=== PATIENT | female | born 1995 | race Caucasian/White ===

== ENCOUNTER 2022-03-31 17:40 | Emergency (ER) | payer BC ==
[2022-03-31 18:21] LABS: CHLORIDE,CL 100 mEq/L (98-106); SODIUM,NA 134 mEq/L (136-145)
[2022-03-31 18:30] LABS: ESTIMATED GFR > 60 mL/min (>=60)
[2022-03-31] MEDS: Acetaminophen 325 MG Tab PO ONE (18:34)
[2022-03-31] MEDS: Acetaminophen Soln 160 MG/5 ML UD Cup PO ONE (18:40)
== END 2022-03-31 19:15 | disposition critical access hospital (66) ==
LOC: CC.ED 17:40
DX: O36.8130 Decreased fetal movements, third trimester, not applicable or unspecified (principal); O99.013 Anemia complicating pregnancy, third trimester; O47.00 False labor before 37 completed weeks of gestation, unspecified trimester; U07.1 COVID-19; R50.9 Fever, unspecified; Z3A.33 33 weeks gestation of pregnancy; Z79.899 Other long term (current) drug therapy; Z88.1 Allergy status to other antibiotic agents; Z90.49 Acquired absence of other specified parts of digestive tract; W18.39XA Other fall on same level, initial encounter
CPT/HCPCS: 36415; 80053; 81001; 85025; 87086; 87804; 99283; 99284; A9270-GY; U0002

== ENCOUNTER 2025-01-20 17:49 | Observation (INO) | payer MEDICAID ==
[2025-01-20] MEDS ORDERED: Sodium Chloride 0.9% 10 ML Syringe FLUSH PRN (18:05)
[2025-01-20] MEDS ORDERED: Ibuprofen 200 MG Tab PO PRN (18:05)
[2025-01-20] MEDS ORDERED: Ondansetron 4 MG Tab.DIS PO PRN (18:05)
[2025-01-20] MEDS ORDERED: Ondansetron 4 MG/2 ML SDV IV PRN (18:05)
[2025-01-20] MEDS ORDERED: Acetaminophen 325 MG Tab PO PRN (18:05)
[2025-01-20] MEDS: Sodium Chloride 0.9% 1,000 ML IV SCH (18:38)
[2025-01-20] MEDS: Ciprofloxacin in D5W 400 MG in Premix Bag 1 BAG IV SCH (18:44)
[2025-01-20] MEDS: Ibuprofen Susp 100 MG/5 ML 5 ML UD Cup PO PRN (19:16)
[2025-01-21 07:38] LABS: BASOPHILS ABSOLUTE AUTO 0.01 10^3/uL (0.00-0.50); BASOPHILS PERCENT AUTO 0.2 % (0-1); EOSINOPHILS ABSOLUTE AUTO 0.06 10^3/uL (0.00-1.50); EOSINOPHILS PERCENT AUTO 1.3 % (0-6); HEMATOCRIT 33.4 % (37.0-47.0); HEMOGLOBIN 11.5 g/dL (12.0-16.0); IMMATURE GRAN ABSOLUTE AUTO 0.01 10^3/uL (0.00-0.49); IMMATURE GRAN PERCENT AUTO 0.2 % (0.0-4.9); LYMPHOCYTES ABSOLUTE AUTO 0.96 10^3/uL (0.60-5.00); LYMPHOCYTES PERCENT AUTO 21.4 % (24-44); MEAN CORPUSCULAR HEMOGLOBIN 30.3 pg (27.0-32.0); MEAN CORPUSCULAR HGB CONC 34.4 g/dL (32.0-36.0); MEAN CORPUSCULAR VOLUME 87.9 fL (83.0-97.0); MONOCYTES ABSOLUTE AUTO 0.51 10^3/uL (0.00-1.50); MONOCYTES PERCENT AUTO 11.4 % (0-10); NEUTROPHILS ABSOLUTE AUTO 2.93 x10^3/uL (1.80-8.00); NEUTROPHILS PERCENT AUTO 65.5 % (41-71); PLATELET COUNT,PLT 185 10^3/uL (150-400); WHITE BLOOD CELL COUNT,WBC 4.5 10^3/uL (4.0-11.0)
[2025-01-21] MEDS: Acetaminophen Soln 160 MG/5 ML UD Cup PO PRN (07:58)
[2025-01-21 08:00] LABS: ALBUMIN 2.9 g/dL (3.4-5.0); BILIRUBIN TOTAL 0.5 mg/dL (0.0-1.0); C-REACTIVE PROTEIN 4.08 mg/dL (<=0.50); CREATININE 0.7 mg/dL (0.6-1.0); EST CRCL DRUG DOSING (CG) 96.99 mL/min; POTASSIUM,K 3.7 mEq/L (3.5-5.0); PROTEIN TOTAL,TP 6.3 g/dL (6.4-8.2)
[2025-01-21] MEDS: Lactobacillus Rhamnosus GG (Probiotic) Cap PO SCH (08:01)
== END 2025-01-21 11:54 | disposition home or self-care (01) ==
LOC: UNDOADMOB 17:49 → CC.MS 17:49
PROVIDERS: ADMIT Nurse Practitioner Family; ATTEND Nurse Practitioner Family
DX: N12 Tubulo-interstitial nephritis, not specified as acute or chronic (principal)
CPT/HCPCS: 36415; 80053; 83605; 85025; 86140; 87040; A9270-GY; J0744; J7030